=== PATIENT | male | born 1960 | race Caucasian/White ===

== ENCOUNTER 2021-11-25 14:45 | Observation (INO) ==
[2021-11-25] MEDS ORDERED: 0.9 % Sodium Chloride 1,000 ML IV ONE (17:50)
[2021-11-25 18:03] LABS: Basophils # 0.1 K/mcL (0.0-0.2); Basophils % 0.4 %; Eosinophils # 0.2 K/mcL (0.0-0.6); Eosinophils % 0.8 %; Immature Granulocytes % 2.8 % (0-4); Lymphocytes # 1.9 K/mcL (0.6-4.6); Lymphocytes % 9.2 %; Mean Corpuscular HGB Conc 33.3 g/dL (31.6-35.5); Mean Corpuscular Hemoglobin 31.5 pg (28.0-33.3); Mean Corpuscular Volume 94.5 fL (83.0-100.0); Mean Platelet Volume 9.7 fL (9.4-12.4); Monocytes # 1.9 K/mcL (0.0-1.3); Monocytes % 9.4 %; Neutrophils # 15.6 K/mcL (1.6-8.9); Platelet Count 537 K/mcL (140-400); Red Blood Count 4.76 M/mcL (4.19-5.50); Red Cell Distribution Width 13.2 % (11.5-14.5); Segmented Neutrophils % 77.4 %; White Blood Count 20.2 K/mcL (4.3-11.1)
[2021-11-25 18:03] LABS: VBG HCO3 17 mEq/L (21-27); VBG PCO2 38 mmHg (41-51); VBG PH 7.27 pH Units (7.32-7.42); VBG PO2 55 mmHg (25-50)
[2021-11-25 18:04] LABS: Bilirubin,Urine Negative (Negative); Blood,Urine Negative (Negative); Clarity,Urine Clear (Clear); Color,Urine Colorless (Yellow); Glucose,Urine (UA) Normal (Normal); Ketones,Urine Negative (Negative); Leukocyte Esterase,Urine Negative (Negative); Nitrite,Urine Negative (Negative); Protein,Urine Negative (Neg-Trace); Specific Gravity,Urine 1.014 (1.010-1.025); Urobilinogen,Urine Normal (Normal)
[2021-11-25 18:38] LABS: Albumin 4.4 g/dL (3.5-5.7); Albumin/Globulin Ratio 1.2 (1.1-2.2); Bilirubin,Total 0.6 mg/dL (0.3-1.0); Calcium 10.4 mg/dL (8.6-10.3); Globulin 3.7 g/dL (2.4-3.5); Potassium 3.5 mEq/L (3.5-5.1); Total Protein 8.1 g/dL (6.4-8.9); Troponin I 0.05 ng/mL (< 0.04)
[2021-11-25 18:58] LABS: Influenza A PCR Negative (Negative); Influenza B PCR Negative (Negative); Resp. Syncytial Virus PCR Negative (Negative)
[2021-11-25 19:03] LABS: SARS-CoV-2 by PCR (In House) Positive (Negative)
[2021-11-25] MEDS ORDERED: cefTRIAXone 1,000 MG in 0.9 % Sodium Chloride 10 ML IVP ONE (19:46)
[2021-11-25] MEDS ORDERED: Azithromycin 500 MG in 0.9 % Sodium Chloride 250 ML IVPB ONE (19:46)
[2021-11-25] MEDS ORDERED: Aspirin 325 MG TABLET PO ONE (20:04)
[2021-11-25] MEDS ORDERED: Ondansetron ODT 4 MG TAB.RAPDIS SL PRN (20:25)
[2021-11-25] MEDS ORDERED: Acetaminophen 325 MG TABLET PO PRN (20:25)
[2021-11-25] MEDS ORDERED: Melatonin 3 MG TABLET PO PRN (20:25)
[2021-11-25] MEDS ORDERED: Naloxone 0.4 MG/ML INJ IVP PRN (20:25)
[2021-11-25] MEDS ORDERED: D5% in Water 1,000 ML IVC PRN (22:22)
[2021-11-25] MEDS ORDERED: *HR* Dextrose 50 % in Water (Syg) 50 ML SYRINGE IVP PRN (22:22)
[2021-11-25] MEDS ORDERED: Dextrose Gel 15 GM/37.5 ML TUBE PO PRN ×2 (22:22)
[2021-11-25] MEDS ORDERED: Insulin DETEMIR 100 UNIT/ML X5UNITS SUBQ SCH (22:30)
[2021-11-25 22:34] LABS: Estimated Average Glucose 240 mg/dl
[2021-11-25] MEDS: Insulin LISPRO 300 UNITS/3 ML VIAL SUBQ SCH (22:43)
[2021-11-25] MEDS ORDERED: 0.9 % Sodium Chloride 1,000 ML IVC SCH (23:00)
[2021-11-25 23:10] LABS: Protein/Creatinine Ratio,Urine 0.14 mg/mg (0.00-0.20)
[2021-11-25] MEDS ORDERED: Albuterol 2.5 MG/3 ML NEBULIZER IH PRN (23:43)
[2021-11-26 04:08] LABS: Basophils # 0.1 K/mcL (0.0-0.2); Basophils % 0.4 %; Eosinophils # 0.1 K/mcL (0.0-0.6); Hematocrit 39.4 % (37.5-50.1); Hemoglobin 13.3 g/dL (12.9-16.9); Immature Granulocytes % 1.9 % (0-4); Mean Corpuscular HGB Conc 33.8 g/dL (31.6-35.5); Mean Corpuscular Hemoglobin 32.2 pg (28.0-33.3); Mean Corpuscular Volume 95.4 fL (83.0-100.0); Mean Platelet Volume 9.7 fL (9.4-12.4); Monocytes # 1.3 K/mcL (0.0-1.3); Monocytes % 9.7 %; Neutrophils # 9.7 K/mcL (1.6-8.9); Platelet Count 414 K/mcL (140-400); Red Blood Count 4.13 M/mcL (4.19-5.50); Red Cell Distribution Width 13.3 % (11.5-14.5); White Blood Count 13.5 K/mcL (4.3-11.1)
[2021-11-26] MEDS ORDERED: *HR* Metoprolol 5 MG/5 ML VIAL IVP ONE (04:23)
[2021-11-26 04:25] LABS: Calcium 9.1 mg/dL (8.6-10.3); Magnesium 1.4 mg/dL (1.6-2.6); Potassium 3.4 mEq/L (3.5-5.1); Total Protein 6.8 g/dL (6.4-8.9)
[2021-11-26] MEDS: *HR* Heparin 5,000 UNIT/ML VIAL SQ SCH ×3 (04:34→20:25)
[2021-11-26] MEDS ORDERED: Ringers Solution, Lactated 1,000 ML IVC SCH (08:15)
[2021-11-26] MEDS ORDERED: cefTRIAXone 1,000 MG in 0.9 % Sodium Chloride Mini Bag 100 ML IVPB SCH (09:00)
[2021-11-26] MEDS ORDERED: Doxycycline 100 MG CAPSULE PO SCH (09:00)
[2021-11-26] MEDS ORDERED: Azithromycin 250 MG TABLET PO SCH (09:00)
[2021-11-26] MEDS: Insulin LISPRO 300 UNITS/3 ML VIAL SUBQ SCH ×4 (11:37→20:26)
[2021-11-26] MEDS: Insulin DETEMIR 100 UNIT/ML X5UNITS SUBQ SCH (20:26)
[2021-11-27 03:07] LABS: Basophils % 0.4 %; Eosinophils # 0.2 K/mcL (0.0-0.6); Eosinophils % 1.8 %; Hematocrit 36.6 % (37.5-50.1); Immature Granulocytes % 1.5 % (0-4); Lymphocytes % 20.5 %; Mean Corpuscular HGB Conc 33.3 g/dL (31.6-35.5); Mean Corpuscular Hemoglobin 31.4 pg (28.0-33.3); Mean Corpuscular Volume 94.3 fL (83.0-100.0); Mean Platelet Volume 9.5 fL (9.4-12.4); Monocytes # 1.1 K/mcL (0.0-1.3); Monocytes % 10.8 %; Neutrophils # 6.4 K/mcL (1.6-8.9); Platelet Count 354 K/mcL (140-400); Red Blood Count 3.88 M/mcL (4.19-5.50); Red Cell Distribution Width 13.2 % (11.5-14.5)
[2021-11-27 03:09] LABS: Hemoglobin 12.2 g/dL (12.9-16.9); White Blood Count 9.9 K/mcL (4.3-11.1)
[2021-11-27 03:28] LABS: Calcium 9.5 mg/dL (8.6-10.3); Magnesium 1.6 mg/dL (1.6-2.6); Phosphorous 2.8 mg/dL (2.7-4.5); Potassium 3.6 mEq/L (3.5-5.1)
[2021-11-27] MEDS: *HR* Heparin 5,000 UNIT/ML VIAL SQ SCH ×3 (06:12→22:25)
[2021-11-27] MEDS: Insulin DETEMIR 100 UNIT/ML X5UNITS SUBQ SCH ×2 (08:42→22:26)
[2021-11-27] MEDS: Insulin LISPRO 300 UNITS/3 ML VIAL SUBQ SCH ×4 (08:43→22:26)
[2021-11-28] MEDS: *HR* Heparin 5,000 UNIT/ML VIAL SQ SCH ×2 (05:59→14:33)
[2021-11-28 07:21] LABS: BUN/Creatinine Ratio 31 (6-26); Blood Urea Nitrogen 44 mg/dL (8-23); Calcium 9.5 mg/dL (8.6-10.3); Carbon Dioxide 20 mEq/L (23-29); Chloride 107 mEq/L (98-107); Glucose 195 mg/dL (70-105); Magnesium 1.2 mg/dL (1.6-2.6); Osmolality,Calculated 301 (280-300); Potassium 3.6 mEq/L (3.5-5.1); Sodium 137 mEq/L (136-145); eGFR For African Americans > 60 (> 60); eGFR For Non-African Americans 50 (> 60)
[2021-11-28] MEDS: Insulin DETEMIR 100 UNIT/ML X5UNITS SUBQ SCH (08:06)
[2021-11-28] MEDS: Insulin LISPRO 300 UNITS/3 ML VIAL SUBQ SCH ×2 (08:07→12:50)
[2021-11-28] MEDS ORDERED: Aspirin Enteric Coated 81 MG Tablet PO SCH (09:00)
[2021-11-28] MEDS ORDERED: amLODIPine 5 MG TABLET PO SCH (09:00)
[2021-11-28 10:51] VITALS: BP 127/63; PULSE 67; TEMP 97.8; O2SAT 94
== END 2021-11-28 18:15 | disposition home or self-care (01) ==
LOC: 3NENU 14:45 → EMEROOARM 14:45 → SUATTDRO 20:08 → 3NENU 21:51
PROVIDERS: ADMIT Internal Medicine; ATTEND Student in an Organized Health Care Education/Training Program